=== PATIENT | male | born 1990 | race Caucasian/White ===

== ENCOUNTER 2018-12-06 12:11 | Emergency (ER) | payer SELFPAY ==
[2018-12-06 13:58] VITALS: TEMP 37
[2018-12-06 14:03] VITALS: BP 141/91; PULSE 89; RESP 20; O2SAT 98
--- NOTE | 2018-12-06 14:03 | DI.RAD.S_ITS ---
PROCEDURE: XR ACUTE ABDOMEN SERIES INDICATIONS: abd pain, constipation TECHNIQUE: One view chest and two views of the abdomen were acquired. COMPARISON: None. FINDINGS: Surgical changes and devices: None. Chest: Lungs are clear. Heart size is normal. No pleural effusions. No pneumoperitoneum. Abdomen: Bowel gas pattern is normal except for a mild degree of colonic obstipation greater on the left than the right.. No suspicious calcifications. Visualized solid organ contours appear normal. Bones: No suspicious bony lesions. IMPRESSION: Mild colonic obstipation greater on the left than the right. Dictated by: Emre Spencer M.D. on 12/06/2018 at 13:33 Approved by: mEre Spencer M.D. on 12/06/2018 at 13:34
[2018-12-06 16:25] VITALS: BP 113/69; PULSE 86; RESP 16; O2SAT 99
--- NOTE | 2018-12-06 16:43 | ED_ITS ---
HPI - Abdominal Pain General Chief Complaint: Abdominal Pain Stated Complaint: stomach issues for a while,anxiety Time Seen by Provider: 12/06/18 16:43 Source: patient Mode of arrival: ambulatory Limitations: no limitations History of Present Illness HPI narrative: Patient is a 28-year-old male whose had issues with constipation off and on it since July. He occasionally takes MiraLax does not take it daily. He actually had a bowel movement yesterday. Today he feels like he wants a full workup. He trying to get into a GI doctor however that is taking longer than he would like. He has no specific abdominal pain no fever no nausea no vomiting. He feels like this problem is causing him anxiety because he does not know what's going on. MD complaint: abdominal pain Pain Consistency: intermittent and now resolved Location: diffuse Related Data Allergies Allergy/AdvReac Type Severity Reaction Status Date / Time No Known Drug Allergies Allergy Verified 12/06/18 15:40 Review of Systems Review of Systems GENERAL: Denies chills, fatigue, malaise, fever, sweats, travel HEENT: Denies sinus pain, ear pain, sore throat, difficulty swallowing, neck pain RESPIRATORY: Denies dyspnea, cough, wheezing, hemoptysis, sputum. CARDIOVASCULAR: Denies chest pain, palpitations, orthopnea, edema GASTROINTESTINAL: See HPI : Denies dysuria, frequency, incontinence, hematuria, urinary retention, flank pain. MUSCULOSKELETAL: Denies weakness, joint pain, or bony pain SKIN: No rash, no erythema, no pruritus NEUROLOGIC: Denies weakness, dizziness, headache, numbness, change in speech, confusion PSYCHIATRIC: No concerning psychosocial issues. 12 point review of systems is negative except for those stated above and HPI [facility] Medical History Constipation (Chronic) Social History Smoking Status: Never smoker substance use type: does not use Social History Smoking Status: Never smoker substance use type: does not use Exam Initial Vital Signs Initial Vital Signs: Vital Signs Temperature 98.6 F 12/06/18 13:58 GENERAL: Alert well-appearing young male no acute distress does not seem to be anxious HEENT: Head atraumatic,EOMI, pupils reactive, face symmetric, moist mucous membranes CARDIOVASCULAR: Regular rate and rhythm without murmurs, rubs or gallops. RESPIRATORY: Breath sounds equal bilaterally, no wheezes rales or rhonchi. ABDOMEN: Soft, nontender. Normoactive bowel sounds all 4 quadrants. No guarding or rebound. EXTREMITIES: Normal range of motion, no clubbing or edema. Neurovascularly intact NEUROLOGICAL: Alert and oriented x4.Normal gait and speech. SKIN: Warm, dry, no laceration, no petechiae, no rashes or lesions. Course Orders Ordered: ED Orders 12/06/18 14:03 XR acute abdomen series Stat Vital Signs - 8 hr 12/06/18 13:58 12/06/18 14:03 12/06/18 16:25 Temperature 98.6 F Pulse Rate 89 86 Respiratory Rate 20 16 Blood Pressure [Left Arm] 141/91 H 113/69 Pulse Oximetry 98 99 MDM - Abdominal Pain Lab Data Point of care testing: Urine Dip Bedside Urine Glucose Negative Bedside Urine Bilirubin - Negative Bedside Urine Ketone +/- 5 Urine Specific [place] 1.015 Bedside Urine Occult Blood - Negative Bedside Urine pH 6.5 Bedside Urine Protein - Negative Bedside Urine Urobilinogen - Negative Bedside Urine Nitrite - Negative Bedside Urine Leukocytes - Negative Esterase Imaging Data Abdominal x-ray: Radiologist's impression: PROCEDURE: XR ACUTE ABDOMEN SERIES INDICATIONS: abd pain, constipation TECHNIQUE: One view chest and two views of the abdomen were acquired. COMPARISON: None. FINDINGS: Surgical changes and devices: None. Chest: Lungs are clear. Heart size is normal. No pleural effusions. No pneumoperitoneum. Abdomen: Bowel gas pattern is normal except for a mild degree of colonic obstipation greater on the left than the right.. No suspicious calcifications. Visualized solid organ contours appear normal. Bones: No suspicious bony lesions. IMPRESSION: Mild colonic obstipation greater on the left than the right. Dictated by: Emre Spencer M.D. on 12/06/2018 at 13:33 MDM Narrative Medical decision making narrative: Long discussion with patient about possible dietary changes regards to helping with abdominal constipation. At this time his abdomen is completely soft he has no pain with any sort of palpation. No vo miting or fever. At this time I do not see any reason for further workup. X- ray does show obstipation. Patient overall is feeling better is just having conversation. Discharge Plan Departure Patient Disposition: Home Clinical Impression: Constipation Qualifiers: Constipation type: other constipation type Qualified Code(s): K59.09 - Other constipation Discharge Date/Time: 12/06/18 17:07 Interventions: ED Discharge Assessment Last Done: 12/06/18 17:06 Instructions: Constipation Activity Restrictions/Additional Instructions: *You have been diagnosed with constipation *What to do: Recommend altering diet *Continue to take medications as directed MiraLax once daily as prescribed *Follow up with your primary care provider in 2-3 days \ *Return to ER if you should have vomiting, increased abdominal or any new, worsening or concerning symptoms
== END 2018-12-06 17:07 | disposition home or self-care (01) ==
PROVIDERS: Emergency Provider Emergency Medicine; Family Provider Family Medicine
DX: K59.00 Constipation, unspecified (principal)
CPT/HCPCS: 74022; 81003; 99282; 99283

== ENCOUNTER → 2020-03-09 05:02 | Outpatient (CLI) | payer BC, SELFPAY ==
[2020-03-09 23:25] LABS: COVID19 Sendout Not Detected (Not Detect)
== END ==
PROVIDERS: Family Provider Family Medicine; Referring Provider Family Medicine; Visit Provider Family Medicine
DX: Z11.59 Encounter for screening for other viral diseases (principal)
CPT/HCPCS: 87635